=== PATIENT | male | born 1985 | race Caucasian/White ===

== ENCOUNTER 2018-07-26 23:18 | Emergency (ER) | payer SELFPAY, OTHER | END 2018-07-27 01:42 | disposition home or self-care (01) | LOC: ED 23:18 ==

== ENCOUNTER 2018-07-28 17:35 | Emergency (ER) | payer SELFPAY ==
[~2018-07-28] VITALS: Ht 175.3 cm; Wt 105.2 kg
[2018-07-28 17:47] VITALS: BP 138/81; Ht 175.3 cm; Wt 105.2 kg
== END 2018-07-28 18:31 | disposition home or self-care (01) ==
LOC: ED 17:35
DX: Z09 Encounter for follow-up examination after completed treatment for conditions other than malignant neoplasm (principal); L03.116 Cellulitis of left lower limb